=== PATIENT | female | born 1950 | race Hispanic/Latino ===

== ENCOUNTER 2018-02-13 07:07 | Day surgery (SDC) | payer MEDICARE ==
[2018-01-24 17:57] VITALS: BMI 18.8
[2018-02-13 07:56] LABS: BASO # 0.04 K/mm3 (0.0-2.0); BASO % 1.1 % (0.0-3.0); EOS # 0.2 (0.0-0.7); EOS % 4.2 % (1.5-5.0); GRAN # 1.3 (1.4-6.5); GRAN % 34.4 % (50.0-68.0); HEMOGLOBIN 13.8 g/dL (12.0-16.0); LYMPH # 1.7 (1.2-3.4); LYMPH % 45.5 % (22.0-35.0); MEAN CELL VOLUME 93.9 fl (80.0-105.0); MEAN CORPUSCULAR HEMOGLOBIN 32.6 pg (25.0-35.0); MEAN CORPUSCULAR HGB CONC 34.8 g/dl (31.0-37.0); MEAN PLATELET VOLUME 9.5 fl (7.0-11.0); MONO # 0.6 (0.1-0.6); MONO % 14.8 % (1.0-6.0); RBC 4.23 10^6/uL (3.5-6.1); RED CELL DISTRIBUTION WIDTH 13.2 % (11.5-14.5); WHITE BLOOD COUNT 3.8 10^3/ul (4.5-11.0)
[2018-02-13 08:07] LABS: BLOOD UREA NITROGEN 5 mg/dL (7-21); GFR NON-AFRICAN AMERICAN > 60
[2018-02-13 08:09] LABS: INR 0.91; PARTIAL THROMBOPLASTIN TIME 30.9 Seconds (25.1-36.5); PROTHROMBIN TIME 10.5 SECONDS (9.4-12.5)
[2018-02-13 08:19] LABS: HDL CHOLESTEROL 161 mg/dL (29-60); LDL CHOLESTEROL 59 mg/dL (0-129)
[2018-02-13] MEDS ORDERED: Phenylephrine 10 mg/ml Inj ONE (08:56)
[2018-02-13] MEDS ORDERED: Iodixanol 320 MG/ML 100 ML BOTTLE IV ONE (08:56)
[2018-02-13] MEDS ORDERED: Lidocaine 2% PF (10 ml) Amp ONE (08:56)
[2018-02-13] MEDS ORDERED: Iodixanol 320 MG/ML 200 ML BOTTLE IV ONE (08:56)
[2018-02-13] MEDS ORDERED: Iohexol 350mgl/ml 50 ML ONE (08:56)
[2018-02-13] MEDS ORDERED: Nitroglycerin 50mg in D5W 0 MG/0 ML BOTTLE IV ONE (08:59)
[2018-02-13] MEDS ORDERED: Midazolam 2 MG/2 ML VIAL ONE ×2 (09:36→09:41)
[2018-02-13] MEDS ORDERED: Sodium Chloride 0.9% 1,000 ML IV SCH (10:30)
[2018-02-13 10:59] VITALS: TEMP 98.5
[2018-02-13 11:39] VITALS: RESP 18
[2018-02-13 14:18] VITALS: PULSE 84; O2SAT 92
[2018-02-13 14:43] VITALS: BP 132/72
--- NOTE | 2018-02-13 15:16 | CARDCATH ---
PROCEDURE DATE: 02/13/2018 HISTORY: The patient is a 67-year-old woman with a long history of smoking and COPD, who presents with a markedly abnormal stress test. Although her nuclear studies revealed no ischemia, her EKG changes during her stress were markedly abnormal. Because of this, cardiac catheterization was recommended. PROCEDURES: Left heart catheterization with coronary arteriography and left ventriculogram. COMPLICATIONS: There were no complications. I performed moderate sedation, which included the presence of an independent trained observer that observed the patient's consciousness and physiologic status. After administration of fentanyl and Versed, my intra service time was 15 minutes. Findings on catheterization revealed a left ventricle that contracted normally. Estimated ejection fraction of 55-60%. Her coronary anatomy revealed a right dominant circulation. The RCA revealed mild intimal irregularities without significant stenoses. The left main artery was unremarkable. The LAD and diagonal vessels were free of significant disease. The circumflex artery and obtuse marginal branches revealed intimal irregularities without critical lesions. The manual compression was used to close the femoral artery site. The patient tolerated the procedure well. In summary, the procedure revealed mild intimal irregularity in the coronary tree with no critical lesions. LV function is normal. Given these findings, the patient's marked ST-T changes does not represent active ischemia. LV function is normal. Given these findings, I have discussed the need to stop smoking with the patient in detail. Maikol Blanca MD
== END 2018-02-13 16:30 | disposition home or self-care (01) ==
LOC: CATH 07:07
PROVIDERS: ATTEND Internal Medicine Cardiovascular Disease
DX: R07.9 Chest pain, unspecified (principal); R94.39 Abnormal result of other cardiovascular function study; J44.9 Chronic obstructive pulmonary disease, unspecified; J45.909 Unspecified asthma, uncomplicated; F17.200 Nicotine dependence, unspecified, uncomplicated; M19.90 Unspecified osteoarthritis, unspecified site; Z85.850 Personal history of malignant neoplasm of thyroid; Z88.6 Allergy status to analgesic agent; Z88.1 Allergy status to other antibiotic agents; Z88.5 Allergy status to narcotic agent; Z88.0 Allergy status to penicillin